=== PATIENT | male | born 1970 | race Caucasian/White ===

== ENCOUNTER 2023-05-16 00:47 | Day surgery (SDC) | payer OTHER, SELFPAY ==
[2023-05-06 14:07] VITALS: BMI 42.5
--- NOTE | 2023-05-14 09:01 | SUR.PREOP ---
Patient called regarding upcoming procedure. Reviewed preop instructions, appointment times, and procedure prep.
[2023-05-16 11:20] VITALS: BP 146/95; PULSE 81; RESP 18; TEMP 36.3; O2SAT 98; BMI 41.6
[2023-05-16] MEDS: LACTATED RINGERS 1,000 ML 150 ML IV CONT (11:54)
--- NOTE | 2023-05-16 12:01 | WPDANESEPPF ---
Anes - Initial Pre Proc Eval Procedure: Operation Date: 05/16/23 12:30 Proposed Procedures p Screening Colonoscopy - Rohan Puri MD Date/Time: 05/16/23 12:01 Surgeon: Rohan Puri MD Pre Op Diagnosis: neoplasm screening Patient Data Age: 52 Gender: M Height: 1.78 m Weight: 131.7 kg Last Vital Signs Temp 97.3 F L 05/16/23 11:20 Pulse 81 05/16/23 11:20 Resp 18 05/16/23 11:20 BP 146/95 H 05/16/23 11:20 Pulse Ox 98 05/16/23 11:20 O2 Del Method Room Air 05/16/23 11:20 Allergies Allergy/AdvReac Type Severity Reaction Status Date / Time No Known Allergies Allergy Unverified 05/16/23 11:32 Patient hx anesthesia problems: none Family hx anesthesia problems: none Results Review: All pre-operative results and documents have been reviewed as part of the pre-operative evaluation. [facility] Past Medical History Medical History (Updated 05/16/23 @ 12:04 by Rohan Puri MD) Colon cancer screening Social History Social History Smoking status: Current some day smoker Tobacco type: cigarettes Drinks per week: 6 Substance use: never Substance use type: does not use Living arrangements: with family Anes - Eval Final PreProcedure Day of Procedure 05/16/23 12:01 Patient weight: morbidly obese Heart: regular rate and rhythm Lungs: clear to auscultation Airway: Mallampati scale class III Neurological: alert and oriented Last oral intake: >/= 8 hours ASA classification: III Emergent: no Anesthetic plan: proceed Anesthesia type and monitoring: general GIVS and standard monitoring Results Review: All pre-operative results and documents have been reviewed as part of the pre-operative evaluation. Informed Consent: The patient's anesthetic plan and its attendant risks and benefits were discussed with the patient/family/POA. Questions were solicited and answers provided to the satisfaction of the patient/family/POA.
--- NOTE | 2023-05-16 12:03 | PM.HPGS ---
History of Present Illness History of Present Illness Consent: Risks, benefits, and alternatives have been discussed and questions answered. Patient agrees to proceed with procedure. Chief complaint: neoplasm screening Narrative: Danielito Estrada is a 52 year old male here for first screening colonoscopy Review of Systems Review of Systems: All systems reviewed & are unremarkable except as noted in HPI and below PMFSH Past Medical History Medical History (Updated 05/16/23 @ 12:04 by Rohan Puri MD) Colon cancer screening Social History Social History Smoking status: Current some day smoker Tobacco type: cigarettes Drinks per week: 6 Substance use: never Substance use type: does not use Living arrangements: with family Meds Home Medications and Allergies Allergies Allergy/AdvReac Type Severity Reaction Status Date / Time No Known Allergies Allergy Unverified 05/16/23 11:32 Vital Signs Vital Signs - 24 hr 05/16/23 11:20 Temperature 97.3 F L Pulse Rate 81 Respiratory Rate 18 Blood Pressure 146/95 H Pulse Oximetry 98 Oxygen Delivery Room Air Exam Const: General: comfortable and no acute distress HENMT: Face/Nose/Sinus: Normal nares present Eyes: General: appearance normal, both eyes and all related structures Neck: Neck: no JVD Resp: Auscultation: clear to auscultation bilaterally Cardio: Rate: regular rate Rhythm: regular rhythm GI: Inspection: non-distended GI Palp: Yes Soft to palpation Skin: General skin exam: normal color Neuro: General: gait normal Speech: normal speech Extrem: General: normal to inspection Psych: Mental Status: mental status grossly normal Assessment and Plan Assessment and plan (1) Colon cancer screening: Code(s): Z12.11 - Encounter for screening for malignant neoplasm of colon Status: Acute Assessment and Plan: colonoscopy
[2023-05-16 12:23] VITALS: BP 124/85; PULSE 77; RESP 17; O2SAT 99
[2023-05-16 12:33] VITALS: BP 132/74; PULSE 77; RESP 12; O2SAT 99
[2023-05-16 12:43] VITALS: BP 140/83; PULSE 67; RESP 16; O2SAT 99
== END 2023-05-16 12:51 | disposition home or self-care (01) ==
PROVIDERS: PCP Internal Medicine; Visit Provider Internal Medicine Gastroenterology
PROC: 0DJD8ZZ Inspection of Lower Intestinal Tract, Via Natural or Artificial Opening Endoscopic (ICD-10-PCS; CPT 45378; principal; 2023-05-16 12:30)
DX: Z12.11 Encounter for screening for malignant neoplasm of colon (principal); K57.30 Diverticulosis of large intestine without perforation or abscess without bleeding; K64.8 Other hemorrhoids; F17.210 Nicotine dependence, cigarettes, uncomplicated; E66.01 Morbid (severe) obesity due to excess calories; Z68.41 Body mass index [BMI] 40.0-44.9, adult
CPT/HCPCS: 45378; J7120

== ENCOUNTER 2024-03-26 09:25 | Outpatient (CLI) | payer BC, SELFPAY ==
--- NOTE | ~2024-03-26 | XR_ITS ---
EXAMINATION: XR knee RT 3V DATE: 03/26/2024 09:44 INDICATION: Chronic right knee pain. TECHNIQUE: 4 views of right knee were obtained. COMPARISON: None. FINDINGS: There is varus angulation at the knee. No acute fracture. 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 There is severe osteoarthritis of medial compartment and mild osteoarthri tis of lateral and patellofemoral compartments. There is a small knee joint effusion with loose body. IMPRESSION: 1. Severe right knee osteoarthritis. 2. Small right knee joint effusion with loose body. Reviewed, dictated and finalized at location B. [facility]
== END 2024-03-26 09:26 | disposition home or self-care (01) ==
PROVIDERS: PCP Internal Medicine; Visit Provider Internal Medicine
DX: M25.561 Pain in right knee (principal); M17.11 Unilateral primary osteoarthritis, right knee; M25.461 Effusion, right knee; M23.41 Loose body in knee, right knee
CPT/HCPCS: 73562